=== PATIENT | male | born 1940 | race Caucasian/White ===

== ENCOUNTER 2016-10-17 20:03 | Inpatient (IN) | payer MEDICARE, BC ==
[2016-10-16 23:44] LABS: A/G RATIO 1.4 (0.7-1.9); ALBUMIN 3.9 G/DL (3.5-5.0); CALCIUM, SERUM 8.6 MG/DL (8.5-10.4); CHLORIDE, SERUM 100 MMOL/L (96-112); GLOBULIN 2.7 G/DL (2.5-4.1); HDL CHOLESTEROL 37 MG/DL (> 39); POTASSIUM, SERUM 4.2 MMOL/L (3.5-5.3); SGOT(AST) 24 U/L (5-40); SGPT(ALT) 24 U/L (5-65); SODIUM, SERUM 139 MMOL/L (135-148); TOTAL BILIRUBIN 0.5 MG/DL (0-1.2); TOTAL PROTEIN 6.6 G/DL (6.0-8.5)
[2016-10-16 23:45] LABS: ALKALINE PHOSPHATASE 72 U/L (45-117); BUN (BLOOD UREA NITROGEN) 63 MG/DL (6-23); CHOL/HDL RATIO(NOT ORDER) 4.6 (0-5); CHOLESTEROL 171 MG/DL (< 200); CO2 (CARBON DIOXIDE) 27 MMOL/L (24-34); CREATININE 6.98 MG/DL (0.70-1.30); GFR AFRICAN AMERICAN 8 ML/MIN (>=60); GFR NON AFRICAN AMERICAN 7 ML/MIN (>=60); GLUCOSE, SERUM 163 MG/DL (60-99); LDL CHOLESTEROL 65 MG/DL (< 130); NON-HDL CHOLESTEROL 134 MG/DL (< 160); TRIGLYCERIDE 345 MG/DL (< 150)
--- NOTE | ~2016-10-17 | HP ---
History And Physical [facility] [address] [place]. [address] NAME: APRIL BLANDON : 40 STATUS : ADM Ángel PAT#: [id number] AGE: 75 ADM/REG DATE : 10/17/16 MR#: [id number] REPORT SERV DATE: 10/17/16 DICTATED BY: ERNESTINA RIVERA DATE: 10/17/16 REPORT STATUS : Draft TRANSCRIBED BY: MODL DATE: 10/17/16 DATE OF ADMISSION: 10/17/2016 NEPHROLOGY HISTORY AND PHYSICAL INDICATION FOR HOSPITALIZATION: Hypoxemic respiratory failure. HISTORY OF PRESENT ILLNESS: Mr. Blandon is a 75-year-old man who dialyzes at [facility] who presented with shortness of breath to the emergency room. He reports that his left AV fistula infiltrated on Sunday, and he received essentially no dialysis. He was seen on 10/16/2016 in the emergency room and was felt to have flu-like symptoms as his had the flu at home. He was dosed with Levaquin and released to follow up on dialysis. The patient indicates that he had a cough productive of yellowish sputum. He felt feverish at home but did not take his temperature. His breathing continued to worsen, and he presented to the emergency room. In the emergency room, he was found to have a chest x-ray consistent with congestive heart failure and his BNP was in excess of 1400. PAST MEDICAL HISTORY: End-stage renal disease, dialyzing Sunday, Sunday, Sunday at [facility] by left AV fistula; history of chronic diastolic CHF; peripheral vascular disease with left carotid endarterectomy in 2011; insulin-dependent diabetes mellitus; hypertension; anemia; T11 compression fracture, status post kyphoplasty in 2011; obstructive sleep apnea, on CPAP; coronary artery disease, which was nonobstructive by prior cardiac care; diabetic neuropathy; remote TIA; gastroesophageal reflux disease; and osteoarthritis. SOCIAL HISTORY: The patient is a remote smoker. Does not use alcohol or illicit drugs. He is retired. He is . Lives with . ALLERGIES: NONE. HOME MEDICATIONS: Tylenol, vitamin C, aspirin, Coreg, Plavix, flaxseed, Lasix, Neurontin, NovoLog 70/30 insulin, Centrum vitamin, Requip, and Flomax. FAMILY HISTORY: Positive for hypertension and diabetes. No end-stage renal disease. REVIEW OF SYSTEMS: HEENT: No change in visual acuity. No epistaxis. No otic infection. No pharyngitis. PULMONARY: No shortness of breath, cough productive of yellowish sputum. Feverishness. Denies hemoptysis. CARDIAC: Denies chest pain. No lower extremity edema. GI: Some nausea. No vomiting. No melena. : No gross hematuria. MUSCULOSKELETAL: Pain in back. INTEGUMENT: No rash. No itching. Did have infiltration of left forearm AV fistula. NEUROLOGIC: No lateralizing weakness or seizure disorder. History And Physical [place] [id number] [place]. [address] NAME: APRIL BLANDON : 40 STATUS : ADM Ángel PAT#: [id number] AGE: 75 ADM/REG DATE : 10/17/16 MR#: [id number] REPORT SERV DATE: 10/17/16 DICTATED BY: ERNESTINA RIVERA DATE: 10/17/16 REPORT STATUS : Draft TRANSCRIBED BY: JESSICA DATE: 10/17/16 The remainder of the 12-point review of systems is negative. PHYSICAL EXAMINATION: GENERAL: Elderly male with tachypnea and moderate distress. VITAL SIGNS: Blood pressure 195/107, temp 98.2, respiratory rate 25, and pulse 105. HEENT: Eyes, no scleral icterus. Pupils equal, reactive to light. Extraocular movement intact. Nares patent. No discharge. Throat, no injection. Mucous membranes moist. NECK: No thyromegaly or masses. Questionable left carotid bruit. CHEST/LUNGS: Diffuse crackles and scattered expiratory wheezes. Scattered rhonchi. CARDIAC: Regular rate and rhythm, 1/6 systolic ejection murmur. No gallop. No rub. ABDOMEN: Supple. Normoactive bowel sounds. No hepatosplenomegaly. No masses. /RECTAL: Not performed. EXTREMITIES: No lower extremity edema or calf tenderness. Left upper extremity AV fistula with good bruit and thrill. MUSCULOSKELETAL: No deformity. NEUROLOGIC: Cranial nerves intact. No lateralizing weakness. IMPRESSION: 1. Pulmonary edema. 2. End-stage renal disease, dialyzing Sunday, Sunday, Sunday at [facility] via left arteriovenous fistula. 3. Possible flu/bronchitis. 4. Peripheral vascular disease, remote, left carotid endarterectomy. 5. Insulin-dependent diabetes mellitus. 6. Hypertension. 7. Anemia. 8. Remote T11 compression fracture following fall, status post kyphoplasty in 2011. 9. Obstructive sleep apnea. 10.Nonobstructive coronary artery disease. 11.Diabetic neuropathy. 12.Remote transient ischemic attack. 13.Gastroesophageal reflux disease. 14.Chronic diastolic congestive heart failure. 15.Osteoarthritis. PLAN: 1. Cultures and initiate antibiotics. 2. Urgent dialysis for ultrafiltration. 3. Labs. CG/MODL Ernestina Rivera M.D. History And Physical [address] [address] NAME: APRIL BLANDON : 40 STATUS : ADM Ángel PAT#: [id number] AGE: 75 ADM/REG DATE : 10/17/16 MR#: [id number] REPORT SERV DATE: 10/17/16 DICTATED BY: ERNESTINA RIVERA DATE: 10/17/16 REPORT STATUS : Draft TRANSCRIBED BY: JESSICA DATE: 10/17/16 / [id number] CC: Andrews Padgett M.D.
--- NOTE | ~2016-10-17 | DS ---
Discharge Summary [facility] [address] [place]. [address] NAME: APRIL BLANDON : 40 STATUS : DIS Ángel PAT#: [id number] AGE: 75 ADM/REG DATE : 10/17/16 MR#: [id number] REPORT SERV DATE: 10/20/16 DICTATED BY: ERNESTINA RIVERA DATE: 10/19/16 REPORT STATUS : Draft TRANSCRIBED BY: MODL DATE: 10/19/16 ADMISSION DATE: 10/17/2016 DISCHARGE DATE: 10/19/2016 INDICATION FOR HOSPITALIZATION: Shortness of breath, hypoxemic respiratory failure. DISCHARGE DIAGNOSES: 1. Hypoxemic respiratory failure. PO2 80% on 15 L O2. 2. Pulmonary edema. 3. End-stage renal disease, dialyzing Sunday, Sunday, Sunday at [facility] by left forearm AV fistula. 4. Chronic diastolic congestive heart failure. 5. Peripheral vascular disease with left carotid endarterectomy, 2011. 6. Insulin-dependent diabetes mellitus. 7. Hypertension. 8. Anemia. 9. T11 compression fracture status post kyphoplasty, 2011. 10.Obstructive sleep apnea, on CPAP. 11.Coronary artery disease, which was nonobstructive by prior cardiac cath. 12.Diabetic neuropathy. 13.Remote transient ischemic attack. 14.Gastroesophageal reflux disease. 15.Osteoarthritis. 16.Bronchitis. HOSPITAL COURSE: Mr. Blandon is a 75-year-old male, who dialyzes Sunday, Sunday, Sunday at [facility]. He apparently had infiltration of his left forearm AV fistula on 10/16/2014, and they were unable to perform adequate dialysis and removal of fluid. He felt he essentially had no dialysis and his confirmed that he was picked up from treatment 40 minutes after being dropped off. He had significant swelling and hematoma in his access extremity. He developed worsening shortness of breath at home and finally presented to the emergency room on 10/17/2016. He was on 15 L of O2 and had a O2 saturation of 80%. His chest x-ray was consistent with congestive heart failure, and his BNP was in excess of 1400. He was taken emergently to dialysis and underwent aggressive ultrafiltration. He was subsequently monitored in the clinical decision unit. He was dialyzed again on 10/18/2016 and his dry weight was challenged achieving a post dialysis weight of 88.5 kg. He states that he is much better after his initial dialysis and breathing was back to baseline after treatment on 10/18/2016. He did have a continued mild productive coarse cough. Blood cultures were negative. He remained afebrile through the hospitalization. His white count of 13,000 fell to 9.4 at time of release. Sputum revealed inadequate quality of specimen. He was felt to have pulmonary edema from inability to remove fluid on his 10/16/2016 dialysis. At time of release, his potassium was 3.9, glucose 112, phosphorus 3.9, calcium 8.6. BNP was 691. He had no chest pain during the hospitalization. He was felt stable for release. DISPOSITION: The patient is being discharged to home and will follow up on dialysis Sunday, Discharge Summary [address] [address] NAME: APRIL BLANDON : 40 STATUS : DIS Ángel PAT#: [id number] AGE: 75 ADM/REG DATE : 10/17/16 MR#: [id number] REPORT SERV DATE: 10/20/16 DICTATED BY: ERNESTINA RIVERA DATE: 10/19/16 REPORT STATUS : Draft TRANSCRIBED BY: JESSICA DATE: 10/19/16Sunday, Sunday at [facility] as scheduled. DIET: 2000-calorie ADA renal diet with 1500 mL fluid restriction per day. DISCHARGE MEDICATIONS: Levaquin 500 mg p.o. q.48 hours x4 doses; Centrum multivitamin one daily; flaxseed 1000 mg daily; acetaminophen 500 mg twice daily p.r.n.; Requip 2 mg q.h.s.; Flomax 0.4 mg q.h.s.; NovoLog insulin 70/30 25 units subcutaneously twice daily; Neurontin 100 mg at bedtime; Lasix 80 mg p.o. on Sunday, Sunday, , Sunday; Plavix 75 mg daily; Coreg 12.5 mg twice daily; aspirin 81 mg daily; vitamin C 500 mg daily. ACTIVITY: Resume per home regimen. CG/JESSICA Ernestina Rivera M.D. / [id number] CC: Andrews Padgett M.D.
[~2016-10-17 20:03] MED LIST: ACET500CAP PO; APRES50 PO; ASAB PO; BL FLAX SEED1000 MG OR; BL FLAX SEED1000 MG PO; CENTRUM PO; CENTRUM TAB1 TAB PO; CO Q-10100 MG PO; CO Q-1030 MG PO; COREG12 PO; DSS PO; EXCEDRINTB PO; FEOSOL200 MG PO; FISH OIL1200 MG PO; FLAXSEED OIL1000 MG PO; FLOMAX4 PO; INSNOV7030 SC; IRON325 MG PO; KLONO5 PO; KLONOPIN WAF0.25 MG PO; L40 PO; L80 PO; LEVAQUIN5T PO; LEVEMIR SC; LIQUID TEARS OPH; LORTAB10 PO; LOVAZA1 GM PO; MINOCIN100 PO; MIRALAXPKT PO; MOMUD PO; NEUR100 PO; NORV5 PO; NOVOLOG SC; NOVOLOG SSI; NOVOLOGMIX SC; NOVOPENMIX SC; PLAVIX PO; PR12.5 PO; PRAVAC PO; PRILO PO; PRILOSEC40 MG PO; PROMEGA PO; Q-SORB50 MG OR; REQUIP2 PO; STOOL SOFTEN240 MG PO; TEARS NATURA OP; TEARS NATURA OPH; TRAN200 PO; TRANDAT300 PO; TYLENOL EXTRA STRENG; TYLENOL PM PO; VIT D; VITAMIN D1000 UNI1 PO; VITC500 PO; VITD PO; ZESTRIL20 MG PO
[2016-10-17 20:08] LABS: BASOPHILS 0.2 %; BASOPHILS ABSOLUTE 0.02 10/3/uL (0.0-0.16); EOSINOPHILS 0.2 %; EOSINOPHILS ABSOLUTE 0.03 10/3/uL (0.0-0.53); IMMATURE GRANULOCYTES 0.2 %; IMMATURE GRANULOCYTES ABSOLUTE 0.03 10/3/uL (0.0-0.11); LYMPHOCYTES 8.8 %; LYMPHOCYTES ABSOLUTE 1.14 10/3/uL (0.67-4.30); MEAN CORPUSCULAR HEMOGLOB 31.9 pg (26.0-34.0); MEAN PLATELET VOLUME 10.4 fL (9.2-13.0); MONOCYTES 8.5 %; MONOCYTES ABSOLUTE 1.11 10/3/uL (0.21-1.20); NEUTROPHILS 82.1 %; NEUTROPHILS ABSOLUTE 10.69 10/3/uL (2.02-8.40); PLATELET COUNT 199 10/3/uL (150-400); RBC DISTRIBUTION WIDTH 13.2 % (12.0-16.0); RED CELL COUNT 3.45 10/6/uL (4.7-6.1)
[2016-10-17 20:09] LABS: ER CBC TAT 0 Hrs 05 Mins; HEMATOCRIT 32.4 % (40.0-51.0); MANUAL DIFF NO %; MEAN CORPUSCULAR VOLUME 93.9 fL (80-100)
[2016-10-17 20:15] LABS: INTERNATIONAL NORMAL RATI 1.1 UNITS (-); PARTIAL THROMBO TIME 30.8 SEC (22.5-37.2); PROTIME (NOT ORD) 13.6 SEC (12.0-14.5)
[2016-10-17 20:24] LABS: BUN (BLOOD UREA NITROGEN) 72 MG/DL (6-23); CALCIUM, SERUM 8.2 MG/DL (8.5-10.4); CHLORIDE, SERUM 101 MMOL/L (96-112); CO2 (CARBON DIOXIDE) 27 MMOL/L (24-34); CREATININE 7.47 MG/DL (0.70-1.30); GFR AFRICAN AMERICAN 7 ML/MIN (>=60); GFR NON AFRICAN AMERICAN 6 ML/MIN (>=60); GLUCOSE, SERUM 217 MG/DL (60-99); POTASSIUM, SERUM 4.4 MMOL/L (3.5-5.3); SODIUM, SERUM 140 MMOL/L (135-148)
[2016-10-17 20:25] LABS: CHEST PAIN PROFILE TAT 0 Hrs 21 Mins; TROPONIN I 1.11 NG/ML (<0.05)
[2016-10-18 03:46] LABS: BASOPHILS 0.3 %; BASOPHILS ABSOLUTE 0.03 10/3/uL (0.0-0.16); EOSINOPHILS 0 %; HEMATOCRIT 31.9 % (40.0-51.0); HEMOGLOBIN 10.8 g/dL (13.6-17.8); IMMATURE GRANULOCYTES 0.4 %; IMMATURE GRANULOCYTES ABSOLUTE 0.04 10/3/uL (0.0-0.11); LYMPHOCYTES 12.9 %; LYMPHOCYTES ABSOLUTE 1.21 10/3/uL (0.67-4.30); MEAN CORPUS HGB CONC 33.9 g/dL (32.0-36.0); MEAN CORPUSCULAR HEMOGLOB 31.6 pg (26.0-34.0); MEAN CORPUSCULAR VOLUME 93.3 fL (80-100); MEAN PLATELET VOLUME 10.6 fL (9.2-13.0); MONOCYTES 8.5 %; NEUTROPHILS 77.9 %; NEUTROPHILS ABSOLUTE 7.29 10/3/uL (2.02-8.40); PLATELET COUNT 194 10/3/uL (150-400); RBC DISTRIBUTION WIDTH 13.3 % (12.0-16.0); RED CELL COUNT 3.42 10/6/uL (4.7-6.1); WHITE BLOOD CELLS 9.4 10/3/uL (4.5-10.5)
[2016-10-18 03:47] LABS: MANUAL DIFF NO %
[2016-10-18 04:25] LABS: ALBUMIN 3.4 G/DL (3.5-5.0); CALCIUM, SERUM 8.4 MG/DL (8.5-10.4); CHLORIDE, SERUM 102 MMOL/L (96-112); CO2 (CARBON DIOXIDE) 25 MMOL/L (24-34); GLUCOSE, SERUM 196 MG/DL (60-99); PHOSPHORUS, SERUM 4.4 MG/DL (2.5-4.5); POTASSIUM, SERUM 4.3 MMOL/L (3.5-5.3); SODIUM, SERUM 140 MMOL/L (135-148)
[2016-10-18 04:26] LABS: BUN (BLOOD UREA NITROGEN) 44 MG/DL (6-23); CREATININE 5.09 MG/DL (0.70-1.30); GFR AFRICAN AMERICAN 12 ML/MIN (>=60); GFR NON AFRICAN AMERICAN 10 ML/MIN (>=60); TROPONIN I 0.94 NG/ML (<0.05)
[2016-10-18 05:36] LABS: PROCALCITONIN 2.73 ng/mL (<0.5)
[2016-10-18 06:22] LABS: INFLUENZA A SCREEN NEGATIVE (NEGATIVE); INFLUENZA B SCREEN NEGATIVE (NEGATIVE)
[2016-10-19 04:16] LABS: BUN (BLOOD UREA NITROGEN) 38 MG/DL (6-23); CALCIUM, SERUM 8.6 MG/DL (8.5-10.4); CHLORIDE, SERUM 104 MMOL/L (96-112); CO2 (CARBON DIOXIDE) 26 MMOL/L (24-34); CREATININE 4.91 MG/DL (0.70-1.30); GFR AFRICAN AMERICAN 12 ML/MIN (>=60); GFR NON AFRICAN AMERICAN 11 ML/MIN (>=60); GLUCOSE, SERUM 112 MG/DL (60-99); PHOSPHORUS, SERUM 3.9 MG/DL (2.5-4.5); POTASSIUM, SERUM 3.9 MMOL/L (3.5-5.3); SODIUM, SERUM 141 MMOL/L (135-148)
[2016-10-19] MEDS ORDERED: LEVAQUIN5T PO (11:23)
[2017-03-27] MEDS ORDERED: *UNABLE1 (17:40)
[2017-03-27] MEDS ORDERED: ATRONASAL6 NAS (17:49)
[2017-03-27] MEDS ORDERED: L80 PO (17:49)
[2017-03-27] MEDS ORDERED: ANOROELLIPTA INH (17:50)
[2017-03-27] MEDS ORDERED: SINGULAIR1 PO (17:50)
[2017-03-27] MEDS ORDERED: COREG25 PO (17:50)
[2017-03-27] MEDS ORDERED: REQUIP1 PO (17:51)
[2017-03-27] MEDS ORDERED: PLAVIX PO (17:51)
[2017-03-27] MEDS ORDERED: FLOMAX4 PO (17:51)
[2017-03-27] MEDS ORDERED: ZOLOFT25 MG PO (17:56)
[2017-03-27] MEDS ORDERED: ASAB PO (17:58)
[2017-03-27] MEDS ORDERED: TUMSROLL PO (17:58)
[2017-03-27] MEDS ORDERED: NOVOPENMIX SC (17:59)
[2017-03-27] MEDS ORDERED: REFRESH OPH SO0.3 ML OPH (18:01)
[2017-03-28] MEDS ORDERED: ATRONASAL6 NAS (12:22)
[2017-03-28] MEDS ORDERED: FLAXSEED OIL PO (12:23)
[2017-03-28] MEDS ORDERED: CENTRUM PO (12:23)
[2017-03-28] MEDS ORDERED: ACET500CAP PO (12:25)
[2017-03-28] MEDS ORDERED: COREG25 PO (12:27)
== END 2016-10-19 12:01 | disposition home or self-care (01) | DRG 291 ==
LOC: ER 20:03 → CDU1 21:00 → CDU2 10-18 00:45
PROVIDERS: Family Medicine; Internal Medicine Nephrology; Specialist
PROC: 5A1D60Z (ICD-10-PCS; principal; 2016-10-18)
DX: I13.2 Hypertensive heart and chronic kidney disease with heart failure and with stage 5 chronic kidney disease, or end stage renal disease (principal); J96.91 Respiratory failure, unspecified with hypoxia; N18.6 End stage renal disease; I50.32 Chronic diastolic (congestive) heart failure; E11.22 Type 2 diabetes mellitus with diabetic chronic kidney disease; E11.40 Type 2 diabetes mellitus with diabetic neuropathy, unspecified; K21.9 Gastro-esophageal reflux disease without esophagitis; I73.9 Peripheral vascular disease, unspecified; I25.10 Atherosclerotic heart disease of native coronary artery without angina pectoris; G47.33 Obstructive sleep apnea (adult) (pediatric); M19.90 Unspecified osteoarthritis, unspecified site; Z99.2 Dependence on renal dialysis; Z87.891 Personal history of nicotine dependence; Z79.4 Long term (current) use of insulin; Z79.02 Long term (current) use of antithrombotics/antiplatelets; Z86.73 Personal history of transient ischemic attack (TIA), and cerebral infarction without residual deficits
CPT/HCPCS: 36415; 71010; 80048; 80053; 80061; 80069; 80202; 82962; 83036; 83735; 83880; 84145; 84484; 85025; 85610; 85730; 87040; 87205; 87804; 93005; 96374; 99291; A9270-GY; G0257; J0360; J3370